=== PATIENT | male | born 1950 | race Caucasian/White ===

== ENCOUNTER 2017-02-20 10:23 | Day surgery (SDC) | payer BC ==
[~2017-02-20] VITALS: Ht 175.3 cm; Wt 146.0 kg
[2017-02-20] MEDS ORDERED: LISI-170 PO (10:55)
[2017-02-20] MEDS ORDERED: ASPI-496 PO (10:55)
[2017-02-20] MEDS ORDERED: LACTATED RINGERS 1,000 ML IV SCH (10:55)
[2017-02-20 11:21] VITALS: BP 130/80
[2017-02-20] MEDS ORDERED: INDOCYANINE GREEN 25 MG VIAL ONE (11:31)
[2017-02-20 11:40] LABS: ASPARTATE AMINO TRANSFERASE 25 U/L (15-37); BLOOD UREA NITROGEN 13 mg/dL (7-18)
[2017-02-20] MEDS ORDERED: EPINEPHRINE SYRINGE 0.1 MG/ML, 10ML ONE (12:11)
[2017-02-20] MEDS ORDERED: hydrALAzine 20 MG/ML, 1ML IV PRN (13:30)
[2017-02-20] MEDS ORDERED: FENTANYL PF 100 MCG/2ML IV PRN (13:30)
[2017-02-20] MEDS ORDERED: OXYcodone 5 MG/5 ML ORAL.SOL UDC PO PRN (13:30)
[2017-02-20] MEDS ORDERED: LABETALOL 5MG/ML, 20ML IV PRN (13:30)
[2017-02-20] MEDS ORDERED: ACETAMINOPHEN 325 MG TABLET PO PRN (13:30)
[2017-02-20] MEDS ORDERED: ONDANSETRON 2MG/ML, 2ML IVPush PRN (13:30)
[2017-02-20] MEDS ORDERED: HYDROmorphone 1 MG/ML, 1ML IV PRN (13:30)
[2017-02-20] MEDS ORDERED: PROPOFOL 10 MG/ML, 20ML ONE (13:33)
[2017-02-20] MEDS ORDERED: PROPOFOL 10 MG/ML, 50ML ONE (16:53)
== END 2017-02-20 16:05 ==
LOC: OUT 10:23
PROVIDERS: ATTEND Internal Medicine Geriatric Medicine
DX: K63.5 Polyp of colon (principal); K63.89 Other specified diseases of intestine; I10 Essential (primary) hypertension; E66.01 Morbid (severe) obesity due to excess calories; Z68.42 Body mass index [BMI] 45.0-49.9, adult
CPT/HCPCS: 36415; 45380; 45392; 80053; 88172; 88173; 88304; 93005; J2704; J7120; 88177

== ENCOUNTER 2018-03-05 08:58 | Day surgery (SDC) | payer BC ==
[~2018-03-05] VITALS: Ht 175.3 cm; Wt 147.7 kg
[~2018-03-05 08:58] MED LIST: ASPI-496 PO; LISI-170 PO
[2018-03-05 09:50] VITALS: BP 135/82
[2018-03-05] MEDS ORDERED: LACTATED RINGERS 1,000 ML IV SCH (09:56)
[2018-03-05] MEDS ORDERED: KETAMINE 10 MG/ML, 20ML ONE (11:13)
[2018-03-05] MEDS ORDERED: PHENYLEPHRINE 10 MG/ML ONE (11:13)
[2018-03-05] MEDS ORDERED: FENTANYL PF 100 MCG/2ML ONE (11:14)
[2018-03-05] MEDS ORDERED: PROPOFOL 50 ML ONE (11:15)
[2018-03-05] MEDS ORDERED: MIDAZOLAM 1 MG/ML, 2ML ONE (11:15)
[2018-03-05] MEDS ORDERED: ACETAMINOPHEN 325 MG TABLET PO PRN (11:30)
[2018-03-05] MEDS ORDERED: LABETALOL 5MG/ML, 20ML IV PRN (11:30)
[2018-03-05] MEDS ORDERED: MEPERIDINE/PF 25MG/0.5ML IVPush PRN (11:30)
[2018-03-05] MEDS ORDERED: OXYcodone 5 MG/5 ML ORAL.SOL UDC PO PRN (11:30)
[2018-03-05] MEDS ORDERED: FENTANYL PF 100 MCG/2ML IV PRN (11:30)
[2018-03-05] MEDS ORDERED: hydrALAzine 20 MG/ML, 1ML IV PRN (11:30)
[2018-03-05] MEDS ORDERED: HYDROmorphone 1 MG/ML, 1ML IV PRN (11:30)
== END 2018-03-05 13:21 | disposition home or self-care (01) ==
LOC: OUT 08:58
PROVIDERS: ATTEND Internal Medicine Geriatric Medicine
DX: Z09 Encounter for follow-up examination after completed treatment for conditions other than malignant neoplasm (principal); K63.89 Other specified diseases of intestine; I10 Essential (primary) hypertension; E66.01 Morbid (severe) obesity due to excess calories; Z86.010 Personal history of colon polyps; Z68.42 Body mass index [BMI] 45.0-49.9, adult; Z98.890 Other specified postprocedural states; Z79.82 Long term (current) use of aspirin
CPT/HCPCS: 45378; 93005; J2250; J2370; J2704; J3010